=== PATIENT | female | born 1965 | race Caucasian/White ===

== ENCOUNTER 2020-09-19 08:50 | Outpatient (REF) | payer BC, SELFPAY | END 2020-09-19 08:51 | disposition home or self-care (01) | LOC: HO.LNP 08:50 | PROVIDERS: Visit Provider Internal Medicine | DX: A04.8 Other specified bacterial intestinal infections (principal); A07.2 Cryptosporidiosis | CPT/HCPCS: 87015; 87272; 87338 ==